=== PATIENT | male | born 1990 | race Caucasian/White ===

== ENCOUNTER 2022-03-03 12:41 | Emergency (ER) | payer OTHER, SELFPAY ==
--- NOTE | 2022-03-03 12:42 | XRR_ITS ---
PROCEDURE INFORMATION: Exam: XR Right Shoulder Exam date and time: 03/03/2022 12:54 PM Age: 31 years old Clinical indication: Patient HX: Was working out and right shoulder started to have pain. Patient states that it's been 3 weeks for pain and has gotten worse TECHNIQUE: Imaging protocol: Radiologic exam of the Right shoulder. Views: 2 or more views. COMPARISON: No relevant prior studies available. FINDINGS: Bones/joints: Normal. Soft tissues: Normal. XR/XR shoulder RT min 2V* [id number] IMPRESSION: No acute findings.
[2022-03-03 13:05] VITALS: BP 167/98; PULSE 84; RESP 16; TEMP 36.3; O2SAT 96
--- NOTE | 2022-03-03 13:25 | ED_ITS ---
HPI - Extremity Problem General: Chief complaint: Extremity Injury, Upper Stated complaint: Right shoulder pain Time Seen by Provider: 03/03/22 13:11 Source: patient Mode of arrival: ambulatory Limitations: no limitations History of Present Illness: 31-year-old male presents to the ER today for right shoulder pain. Patient reports he is visiting the area. He reports he has had prior injury to the shoulder however has been lifting weights and thinks he may have injured it further. Patient reports he felt a pop in the right shoulder and since then he has had significant pain with abduction of that shoulder. Patient reports he is unable to lift it. He reports at this time it is difficult to sleep due to the pain. He reports he is taking ibuprofen with minimal relief. Patient denies any numbness or tingling. Review of Systems General: Reports: 10 or more systems reviewed and unremarkable except in HPI and below Physical Exam Const: COMMON NORMALS: no acute distress, average body habitus, patient oriented x3, no limitations, healthy appearing, alert and well nourished HENMT: COMMON NORMALS: normocephalic, atraumatic, external ears normal, Normal nasal mucous membranes and turbinates present and moist oral mucous membranes HEAD & SCALP: normocephalic and atraumatic NOSE: Normal nasal mucous m embranes and turbinates present EXTERNAL EAR: Yes external ears normal Neck/C-Spine: COMMON NORMALS: full ROM Resp: COMMON NORMALS: normal respiratory effort EFFORT & INSPECTION: Yes able to speak in complete sentences Cardio: COMMON NORMALS: regular rate and regular rhythm RATE: regular rate RHYTHM: regular rhythm Back/Pelvis: COMMON NORMALS: thoraco-lumbar ROM normal Extremity: NARRATIVE EXTREMITY EXAM: Patient has tenderness over the AC joint of the right shoulder. Patient has difficulty and significant pain with abduction greater than about 45 degrees of the right arm. No obvious deformity is noted. No obvious swelling noted. No bruising noted. Neuro: COMMON NORMALS: patient oriented x3 SENSORIUM/ORIENTATION: Yes alert Psych: COMMON NORMALS: mental status grossly normal, Normal thought process present and cooperative THOUGHT PROCESS: Normal thought process present Skin: COMMON NORMALS: no rashes or lesions noted and no wounds GENERAL SKIN EXAM: no rashes or lesions noted Course ED course: 31-year-old male presents to the ER today for worsening right shoulder pain. Patient reports prior injury to the shoulder which seems to be worsening. Patient reports he lifts weights and that is making things worse. Patient reports he most recently felt a pop in the right shoulder and since then has had difficulty with range of motion of the shoulder. Patient reports he is taking ibuprofen with minimal relief. Patient reports he does not live in the area so he came to the ER for evaluation. We will get an x-ray of the right shoulder. Vital Signs: Vital signs: Vital Signs Temperature 97.4 F L 03/03/22 13:05 Pulse Rate 84 03/03/22 13:05 Respiratory Rate 16 03/03/22 13:05 Blood Pressure 167/98 03/03/22 13:05 Pulse Oximetry 96 03/03/22 13:05 Oxygen Delivery Me thod 03/03/22 13:05 MDM - Extremity (Nontraumatic) Medical Decision Making 31-year-old male presents to the ER today for worsening right shoulder pain. Patient reports prior injury to the shoulder which seems to be worsening. Patient reports he lifts weights and that is making things worse. Patient reports he most recently felt a pop in the right shoulder and since then has had difficulty with range of motion of the shoulder. Patient reports he is taking ibuprofen with minimal relief. Patient reports he does not live in the area so he came to the ER for evaluation. We will get an x-ray of the right shoulder. X-ray of the right shoulder is normal. I discussed with patient that likely he needs advanced imaging which we will not do through the ER. We will do a Medrol Dosepak and anti-inflammatory at this time. Patient should not take ibuprofen while taking the ketorolac. Recommended patient stop lifting and treat conservatively. Apply ice alternate with heat for relief. Recommended patient follow-up when he gets home with an orthopedic surgeon. Patient verbalized understanding and is in agreement with the treatment plan. Critical Care Time Critical Care Time: Critical Care Time: No Discharge Plan Discharge Patient Disposition: Home Clinical Impression: Acute pain of right shoulder Condition: Stable Prescriptions: New ketorolac 10 mg tablet 10 mg PO Q8H PRN (Reason: pain) 3 Days Qty: 12 0RF Medrol (Fan) 4 mg tablets,dose pack See Rx Instructions .ROUTE .COMPLEX Qty: 21 0RF Rx Instructions: orally per package directions Discharge Orders: Discharge ED (Routine); Ordered 03/03/22 Ordered By: Brooklynn Ng Discharge Diet: Usual diet Discharge Activity: Increase activity as tolerated Patient Instructions: Opioid Safety, Pain Management Activity Restrictions/Additional Instructions: Take Medrol Dosepak and ketorolac as prescribed. While taking ketorolac, do not take ibuprofen or Aleve. Okay to take Tylenol. Recommend ice alternating with heat for comfort. Avoid any heavy lifting. Would recommend follow-up with PCP in 7 to 10 days for possible advanced imaging. Return to the ER with any new or worsening symptoms. Coding Level of Care Code ED [employer] for Pedro Lee
== END 2022-03-03 13:32 | disposition home or self-care (01) ==
PROVIDERS: Emergency Provider Physician Assistant
DX: M25.511 Pain in right shoulder (principal)
CPT/HCPCS: 73030; 99283